=== PATIENT | male | born 1955 | race Caucasian/White ===

== ENCOUNTER 2021-09-28 11:47 | Inpatient (IN) | payer MEDICARE ==
[~2021-09-28] VITALS: Ht 182.9 cm; Wt 102.1 kg
[2021-09-28 12:17] LABS: HEMOGLOBIN 15.3 gm/dl (14.0-17.5); RED BLOOD COUNT 5.67 M/UL (4.20-5.50); WHITE BLOOD COUNT 7.4 K/UL (4.5-11.0)
[2021-09-28 12:39] LABS: BUN/CREATININE RATIO 18 (0-10)
[2021-09-29] MEDS ORDERED: OMEPRAZOLE20 MG PO (03:52)
[2021-09-29] MEDS ORDERED: METFORMIN HCL1000 MG PO (03:52)
[2021-09-29] MEDS ORDERED: ZOCOR 40 MG TAB40 MG PO (03:52)
[2021-09-29] MEDS ORDERED: LOTRISONE CREAM15 GM TP (03:53)
[2021-09-29] MEDS ORDERED: TRAMADOL HCL50 MG PO (03:53)
[2021-09-29] MEDS ORDERED: DIABETA 5 MG TAB5 MG PO (03:54)
[2021-09-29] MEDS ORDERED: VALSARTAN80 MG PO (03:55)
[2021-09-29 10:10] LABS: HEMOGLOBIN 12.5 gm/dl (14.0-17.5); RED BLOOD COUNT 4.72 M/UL (4.20-5.50); WHITE BLOOD COUNT 2.4 K/UL (4.5-11.0)
[2021-09-30 08:23] LABS: HEMOGLOBIN 13.7 gm/dl (14.0-17.5); RED BLOOD COUNT 5.19 M/UL (4.20-5.50)
[2021-09-30 08:24] LABS: WHITE BLOOD COUNT 5.6 K/UL (4.5-11.0)
[2021-10-01 07:57] LABS: HEMOGLOBIN 13.2 gm/dl (14.0-17.5); RED BLOOD COUNT 5.21 M/UL (4.20-5.50); WHITE BLOOD COUNT 4.7 K/UL (4.5-11.0)
[2021-10-01 08:27] LABS: BUN/CREATININE RATIO 18 (0-10)
[2021-10-02 04:07] LABS: HEMOGLOBIN 13.7 gm/dl (14.0-17.5); RED BLOOD COUNT 5.17 M/UL (4.20-5.50)
[2021-10-02 04:08] LABS: WHITE BLOOD COUNT 3.3 K/UL (4.5-11.0)
[2021-10-02 04:38] LABS: BUN/CREATININE RATIO 23 (0-10)
[2021-10-03 03:31] LABS: HEMOGLOBIN 13.5 gm/dl (14.0-17.5); RED BLOOD COUNT 5.15 M/UL (4.20-5.50)
[2021-10-03 03:32] LABS: WHITE BLOOD COUNT 4.4 K/UL (4.5-11.0)
[2021-10-03 04:11] LABS: BUN/CREATININE RATIO 30 (0-10)
[2021-10-03] MEDS ORDERED: DOXYCYCLINE HY100 MG PO (14:53)
[2021-10-03] MEDS ORDERED: BUDESONIDE0.5 MG/2 M NEB (14:53)
[2021-10-03] MEDS ORDERED: BENZONATATE100 MG PO (14:53)
[2021-10-03] MEDS ORDERED: IPRAT-ALBUT 0.5-3 ML NEB (14:53)
[2021-10-03] MEDS ORDERED: ELIQUIS 2.5 MG2.5 MG PO (15:02)
[2021-10-03] MEDS ORDERED: DEXAMETHASONE2 MG PO (15:02)
[2021-10-03] MEDS ORDERED: LASIX20 MG PO (15:02)
[2021-10-03] MEDS ORDERED: AEROECLIPSE II1 EACH INH (15:04)
--- NOTE | 2021-10-03 15:29 | NUR ---
Patient O2 sat 85% on room air.
== END 2021-10-03 17:15 | disposition home health service (06) | DRG 177 ==
LOC: ER1 11:47 → CDU 16:42 → MED SURG 4 16:42
PROVIDERS: Student in an Organized Health Care Education/Training Program; ADMIT Internal Medicine
PROC: 8E0ZXY6 Isolation (ICD-10-PCS; principal; 2021-09-28)
PROC: 3E0333Z Introduction of Anti-inflammatory into Peripheral Vein, Percutaneous Approach (ICD-10-PCS; 2021-09-28)
PROC: XW033E5 Introduction of Remdesivir Anti-infective into Peripheral Vein, Percutaneous Approach, New Technology Group 5 (ICD-10-PCS; 2021-09-28)
PROC: XW0DXM6 Introduction of Baricitinib into Mouth and Pharynx, External Approach, New Technology Group 6 (ICD-10-PCS; 2021-10-01)
DX: U07.1 COVID-19 (principal); J12.82 Pneumonia due to coronavirus disease 2019; J96.01 Acute respiratory failure with hypoxia; J15.9 Unspecified bacterial pneumonia; N17.9 Acute kidney failure, unspecified; E87.1 Hypo-osmolality and hyponatremia; E11.9 Type 2 diabetes mellitus without complications; I10 Essential (primary) hypertension; E86.0 Dehydration; E78.5 Hyperlipidemia, unspecified; Z79.899 Other long term (current) drug therapy; Z79.82 Long term (current) use of aspirin; Z87.891 Personal history of nicotine dependence; Z83.3 Family history of diabetes mellitus; Z82.49 Family history of ischemic heart disease and other diseases of the circulatory system; Z79.4 Long term (current) use of insulin; Z23 Encounter for immunization; Z79.84 Long term (current) use of oral hypoglycemic drugs
CPT/HCPCS: 36415; 36600; 71045; 71250; 80048; 80053; 82550; 82553; 82728; 82803; 82962; 83605; 83880; 84132; 84484; 85025; 85379; 85652; 86140; 87040; 93005; 94640; 94664; 94760; 96374; 96375; 97116; 97162; 99285; J0456; J0696; J1100; J1650; J1940; J7030; U0002